=== PATIENT | male | born 1990 | race African-American/Black ===

== ENCOUNTER 2022-06-11 23:53 | Emergency (ER) | payer SELFPAY ==
[2022-06-12 00:02] VITALS: BP 151/109; PULSE 67; RESP 16; TEMP 36.8; O2SAT 97; BMI 21.1
== END 2022-06-12 02:41 | disposition left against medical advice (07) ==
PROVIDERS: Emergency Provider Emergency Medicine
DX: S61.011A Laceration without foreign body of right thumb without damage to nail, initial encounter (principal); W23.1XXA Caught, crushed, jammed, or pinched between stationary objects, initial encounter; Y93.9 Activity, unspecified; Y92.9 Unspecified place or not applicable; Y99.9 Unspecified external cause status
CPT/HCPCS: 99281